=== PATIENT | male | born 1960 | race Caucasian/White ===

== ENCOUNTER → 2017-11-07 08:05 | Outpatient (REF) | payer OTHER, SELFPAY ==
[2017-11-07 12:34] LABS: Cholesterol 260 mg/dL (50-200); HDL Cholesterol 41 mg/dL (40-60); LDL CHOLESTEROL 187 mg/dL (<100); Triglyceride 159 mg/dL (30-150)
[2017-11-07 12:51] LABS: Hemoglobin A1C 5.7 % (4.5-6.2)
== END ==
LOC: NCHCN 08:05
PROVIDERS: PCP Family Medicine; Visit Provider Family Medicine
DX: R73.9 Hyperglycemia, unspecified (principal); E78.00 Pure hypercholesterolemia, unspecified; E66.9 Obesity, unspecified
CPT/HCPCS: 80061; 83721; 82728; 83036; 83540; 83550

== ENCOUNTER 2018-05-13 11:58 | Outpatient (REF) | payer OTHER, SELFPAY ==
[2018-05-13 13:22] LABS: ALT 17 U/L (12-78); AST 18 U/L (15-37); Albumin 3.6 g/dL (3.4-5.0); Alkaline Phosphatase 111 U/L (46-116); Anion Gap 8.3 mmol/L (3-11); BUN 15 mg/dL (7-18); Bilirubin, Total 0.4 mg/dL (0.2-1.0); CO2 27.7 mmol/L (21.0-32.0); CREATININE 1.08 mg/dL (0.70-1.30); Calcium 8.9 mg/dL (8.5-10.1); Chloride 105 mmol/L (98-107); Cholesterol 180 mg/dL (50-200); Glucose 90 mg/dL (70-100); HDL Cholesterol 44 mg/dL (40-60); LDL CHOLESTEROL 107 mg/dL (<100); Potassium 4.6 mmol/L (3.5-5.1); Sodium 141 mmol/L (136-145); Total Protein 6.6 g/dL (6.4-8.2); Triglyceride 154 mg/dL (30-150)
== END 2018-05-13 12:18 ==
LOC: NCHCN 11:58
PROVIDERS: PCP Family Medicine; Visit Provider Family Medicine
DX: E78.00 Pure hypercholesterolemia, unspecified (principal)
CPT/HCPCS: 80053; 80061; 83721

== ENCOUNTER 2019-05-19 07:56 | Outpatient (REF) | payer OTHER, SELFPAY ==
[2019-05-19 11:25] LABS: HCT 41.6 % (40.0-50.0); HGB 14.6 g/dL (13.5-17.5); Mean Corp. HGB Concentration 35.1 g/dL (32.0-36.0); Mean Corpuscular Hemoglobin 30.2 pg (27.0-33.0); Mean Corpuscular Volume 86.1 fL (80-95); Mean Platelet Volume 10.1 fL (8.0-11.0); Platelet Count 280 x1000/uL (130-400); RBC 4.83 m/cumm (4.50-6.00); RBC Distribution Width 12.9 % (11.8-14.1); White Blood Cell Count 7.55 k/cumm (4.4-10.8)
[2019-05-19 14:02] LABS: ALT 24 U/L (16-63); AST 19 U/L (15-37); Albumin 3.9 g/dL (3.4-5.0); Alkaline Phosphatase 118 U/L (46-116); Anion Gap 9.4 mmol/L (3-11); BUN 18 mg/dL (7-18); Bilirubin, Total 0.7 mg/dL (0.2-1.0); CO2 27.6 mmol/L (21.0-32.0); CREATININE 1.07 mg/dL (0.70-1.30); Calcium 9.1 mg/dL (8.5-10.1); Calculated LDL 117 mg/dL (<100); Chloride 104 mmol/L (98-107); Cholesterol 183 mg/dL (<200); Glucose 96 mg/dL (74-106); HDL Cholesterol 45 mg/dL (40-60); Potassium 4.9 mmol/L (3.5-5.1); Sodium 141 mmol/L (136-145); Total Protein 6.6 g/dL (6.4-8.2); Triglyceride 106 mg/dL (<150)
== END 2019-05-19 08:16 ==
LOC: NCHCN 07:56
PROVIDERS: PCP Family Medicine; Visit Provider Family Medicine
DX: Z00.00 Encounter for general adult medical examination without abnormal findings (principal); E78.00 Pure hypercholesterolemia, unspecified; R73.9 Hyperglycemia, unspecified; E66.9 Obesity, unspecified
CPT/HCPCS: 80053; 80061; 85027

== ENCOUNTER 2019-09-13 18:35 | Outpatient (REF) | payer OTHER, SELFPAY | END 2019-09-13 18:55 | LOC: NCHCN 18:35 | PROVIDERS: PCP Family Medicine | DX: N39.0 Urinary tract infection, site not specified (principal) | CPT/HCPCS: 87077; 87086; 87186 ==

== ENCOUNTER 2020-06-02 09:31 | Outpatient (REF) | payer OTHER, SELFPAY ==
[2020-06-02 13:37] LABS: HCT 42.2 % (40.0-50.0); HGB 14.2 g/dL (13.5-17.5); MCH 29.1 pg (27.0-33.0); MCHC 33.6 % (32.0-36.0); MCV 86.5 fL (80-95); Platelet Count 257 10^3/uL (130-400); RBC 4.88 10^6/uL (4.36-5.78); RDW 12.3 % (11.8-14.1); RDW-SD 38.7 fL; WBC 7.05 10^3/uL (4.4-10.8)
[2020-06-02 13:48] LABS: ALT 24 U/L (16-63); AST 17 U/L (15-37); Albumin 3.8 g/dL (3.4-5.0); Alkaline Phosphatase 112 U/L (46-116); Anion Gap 9.6 mmol/L (3-11); BUN 15 mg/dL (7-18); Bilirubin, Total 0.7 mg/dL (0.2-1.0); CO2 27.4 mmol/L (21.0-32.0); CREATININE 1.1 mg/dL (0.70-1.30); Calcium 9.3 mg/dL (8.5-10.1); Calculated LDL 107 mg/dL (<100); Chloride 104 mmol/L (98-107); Cholesterol 181 mg/dL (<200); Glucose 96 mg/dL (74-106); HDL Cholesterol 48 mg/dL (40-60); Potassium 4.8 mmol/L (3.5-5.1); Sodium 141 mmol/L (136-145); Total Protein 6.7 g/dL (6.4-8.2); Triglyceride 133 mg/dL (<150)
== END 2020-06-02 09:32 | disposition home or self-care (01) ==
LOC: NCHCN 09:31
PROVIDERS: PCP Family Medicine; Visit Provider Family Medicine
DX: R03.0 Elevated blood-pressure reading, without diagnosis of hypertension (principal); R73.03 Prediabetes; E78.00 Pure hypercholesterolemia, unspecified; Z00.00 Encounter for general adult medical examination without abnormal findings
CPT/HCPCS: 80053; 80061; 85027

== ENCOUNTER 2020-10-20 08:54 | Day surgery (SDC) | payer OTHER, SELFPAY ==
[2020-10-20 09:14] VITALS: BP 126/92; PULSE 63; RESP 16; TEMP 36; O2SAT 99
[2020-10-20] MEDS: Lactated Ringers 1,000 ML 80 ML IV (09:49)
--- NOTE | 2020-10-20 10:38 | ANES.PREOP_ITS ---
General Info Date of Service Date Performed: 10/20/20 Height: 5 ft 8 in Weight: 85 kg Body Mass Index (BMI): 28.5 Surgical Procedure: Operation Date: 10/20/20 11:05 Proposed Procedures Side Surgeon norberto Dubois MD Meds Allergies and Home Medications Allergies Allergy/AdvReac Type Severity Reaction Status Date / Time No Known Allergies Allergy Unverified 10/20/20 09:09 Home Medication Medication Instructions Recorded bupropion HCl [Wellbutrin XL] 300 mg PO DAILY tab-cap 05/21/17 cholecalciferol (vitamin D3) 1,000 unit PO DAILY 05/21/17 mirtazapine [Remeron] 7.5 mg PO HS 05/21/17 aspirin 81 mg tablet,delayed 81 mg PO DAILY 05/27/19 release atorvastatin 20 mg tablet 20 mg PO QHS 05/27/19 lamotrigine 150 mg tablet 150 mg PO DAILY 06/28/20 bimatoprost 0.01 % eye drops 1 drp OPHTHALMIC (EYE) DAILY 10/12/20 Current Visit Medications: Current Medications Generic Name Dose Route Start Last Admin Trade Name Freq PRN Reason Stop Dose Admin Ringer's Solution 1,000 mls @ 80 mls/hr 10/20/20 06:00 10/20/20 09:49 IV 11/18/20 23:59 80 mls/hr INFUSION MICHELA Administration IV Miscellaneous Supplies 1 each 10/20/20 06:00 Iv Access IV 11/18/20 23:59 DIRECTED MICHELA Sodium Chloride 0 ml 10/20/20 06:00 Normal Saline Flush 10 Ml Syr IV 11/18/20 23:59 PRN PRN Sodium Chloride 0 ml 10/20/20 06:00 Normal Saline 10 Ml Vial IJ 11/18/20 23:59 DIRECTED PRN Sterile Water 0 ml 10/20/20 06:00 Water,Injection,Sterile 10 Ml Vial IJ 11/18/20 23:59 DIRECTED PRN [facility] Medical History Medical History (Updated 10/20/20 @ 09:08 by Earline Irving) Blood glucose elevated Depression Glaucoma Hypercholesterolemia Obesity Obstructive sleep apnea (02/07/07) per pt lost 60 pounds and no longer has sleep apnea Prediabetes Pt. states this was an error on behalf of [employer], that was supposed to have been cleared out. Seasonal allergies Umbilical hernia Surgical History Surgical History Colonoscopy - MAC ([address] sandra pritchett, repeat 10 years) EGD - MAC Omi Fundoplication (07/29/05) Vasectomy (~11/05/06) Tobacco Smoking/Tobacco Use Status: Never Alcohol Alcohol Intake: never Substance Use Substance use: Never Substance use type: does not use Vital Signs and Lab Results Vital Signs Most Recent Vital Signs in EMR: Most Recent Vital Signs Temp Pulse Resp BP Pulse Ox 36 C L 63 16 126/92 H 99 10/20/20 09:14 10/20/20 09:14 10/20/20 09:14 10/20/20 09:14 10/20/20 09:14 Lab Results Blood Type / Crossmatch: No Data to Display Complete Blood Count: No Data to Display Complete Metabolic Panel: No Data to Display Liver Function Panel: No Data to Display Coagulation Panel: No Data to Display Cardiac Panel: No Data to Display Arterial Blood Gas: No Data to Display Venous Blood Gas: No Data to Display Pancreas Panel: No Data to Display Thyroid Panel: No Data to Display Infectious Disease: No Data to Display Blood Cultures: No Data to Display Toxicology Panel: No Data to Display Anesthesia Assessment and Plan Anesthesia History Personal History: No History of Anesthesia Complications Family History: No Family History of Anesthesia Complications Exercise Tolerance Exercise Tolerance: Metabolic Equivalents>4 Pertinent Negatives Pertinent Negatives: No Symptoms of GERD, No Major Cardiovascular Symptoms or Complaints and No Major Pulmonary Symptoms or Complaints Cardiac & Pulmonary Exam Cardiac Exam: Normal S1/S2 Heart Sounds and Unable to Assess Pulmonary Exam: Clear Bilateral Breath Sounds Airway Exam Known Difficult Airway: No Mallampati Class: 1 Mouth Opening: Normal (> 3cm) Thyromental Distance: Greater than 3 cm Neck Range of Motion: Full ROM Neck Circumference: Normal Teeth Condition: Normal Dentition ASA Classification ASA Score: ASA 2 Emergency Case?: No NPO Status NPO Status: NPO Clears >2 hours, Solids >8 hours Anesthesia Plan Resuscitation Status: Full Code Anesthesia Technique: General Anesthesia Airway Planned: Natural Airway Monitors Used: Standard Monitors
[2020-10-20 11:20] VITALS: BMI 28.5
--- NOTE | 2020-10-20 12:26 | W.COLOREPORT ---
Date of service: 10/20/20 Time of Service: 12:26 Colonoscopy Report Date of procedure: 10/20/20 Pre-op diagnosis general: Screening colonoscopy Post-op diagnosis procedure note: same Procedure: Colonoscopy Surgeon: Julio Dubois Anesthesia Type: MAC Estimated blood loss (mL): 0 Pathology: none sent Complications: None Disposition: same day Indications: 59yo male here for screening colonoscopy. His last colonoscopy was in 2009, and was unremarkable. He denies any family history of colon cancer. He has no new complaints. Prep: Miralax/Dulcolax Findings: Rare diverticulosis in the sigmoid colon. No hemorrhoids. Otherwise, normal colon. Procedure Description: After informed consent was obtained, the patient was taken to the procedure room and placed in a left decubitus position. Monitors were applied and a time out was done. The patient's name, date of , procedure, allergies to medications, and metal in their body were reviewed. The patient was then sedated. Once sedated and comfortable, a digital rectal exam was done. External exam was normal. Internal exam revealed good sphincter tone, and no palpable masses or gross blood. The colonoscope was then introduced and advanced to the cecum under direct visualization with minimal difficulty. The ileocecal valve and appendiceal orifice were visualized. The prep was fair. The scope was then slowly withdrawn for over 12 minutes in a circumferential manner to the rectum. In doing so, no polyps were encountered. There was mild diverticulosis noted in the sigmoid colon. The mucosa was pink and healthy. In the rectum, the scope was retroflexed, and no significant internal hemorrhoids were noted. The scope was straightened and withdrawn from the anus. The patient tolerated the procedure well, and there were no immediate complications. The patient was taken to the Day Surgery Unit recovery area in good condition. Follow up: 10 years
--- NOTE | 2020-10-20 12:29 | W.PM.DSUDISC ---
Discharge Plan Disposition Patient Disposition: HOME Condition: Good Discharge Details Reason For Visit: Screening colonoscopy Attending Provider: Julio Dubois Primary Care Provider: Belkys Wolfe Home Meds and New Rx's Prescriptions: Continued Lumigan 0.01 % drops 1 drp ophthalmic (eye) DAILY RF: 0 mirtazapine [Remeron] 15 MG tablet 7.5 mg PO HS RF: 0 cholecalciferol (vitamin D3) 1,000 UNIT capsule 1,000 unit PO DAILY RF: 0 bupropion HCl [Wellbutrin XL] 300 MG tablet extended release 24 hr 300 mg PO DAILY RF: 0 atorvastatin 20 mg tablet 20 mg PO QHS RF: 0 aspirin [Adult Low Dose Aspirin] 81 mg tablet,delayed release (DR/EC) 81 mg PO DAILY RF: 0 lamotrigine [Lamictal] 150 mg tablet 150 mg PO DAILY RF: 0 Discharge Instructions Instructions: Colonoscopy (DC) Activity:: Activity as Tolerated Diet:: As Tolerated Discharge Data Discharge Comment: Repeat colonoscopy in 10 years DS: Diagnosis Discharge Diagnosis (1) Screening for malignant neoplasm of colon: Status: Acute
[2020-10-20 12:30] VITALS: BP 108/67; PULSE 62; RESP 12; TEMP 36; O2SAT 98
--- NOTE | 2020-10-20 12:47 | W.ANESPOSTOP ---
Postoperative Evaluation Date, Time and Location Date Performed: 10/20/20 Time Performed: 12:47 Patient Location: Day Surgery Unit Vital Signs Most Recent Imported Vital Signs: Most Recent Vital Signs Temp Pulse Resp BP Pulse Ox 36 C L 62 12 108/67 98 10/20/20 12:30 10/20/20 12:30 10/20/20 12:30 10/20/20 12:30 10/20/20 12:30 Pain Score Most Recent Pain Score: Most Recent Pain Score Pain Level 0 10/20/20 12:30 Assessment Mental Status: Awake (Alert & Oriented to Patient Baseline) Airway and Respiratory Function: Patent airway with normal (patient baseline) respiratory exam Cardiovascular Function: Hemodynamically Stable Hydration Status: Adequately Hydrated Nausea & Vomiting: No Nausea or Vomiting Pain: Pt. Denies Any Pain Peripheral Nerve Block: Patient did not receive a nerve block
[2020-10-20 13:00] VITALS: BP 121/79; PULSE 59; RESP 17; TEMP 36; O2SAT 98
== END 2020-10-20 13:48 | disposition home or self-care (01) ==
PROVIDERS: PCP Family Medicine; Visit Provider Surgery
PROC: 0DJD8ZZ Inspection of Lower Intestinal Tract, Via Natural or Artificial Opening Endoscopic (ICD-10-PCS; CPT 45378; principal; 2020-10-20 11:00)
DX: Z12.11 Encounter for screening for malignant neoplasm of colon (principal); K57.30 Diverticulosis of large intestine without perforation or abscess without bleeding
CPT/HCPCS: 45378; J2001

== ENCOUNTER 2021-08-23 08:49 | Outpatient (REF) | payer OTHER, SELFPAY ==
[2021-08-23 14:54] LABS: ALT 18 U/L (16-63); AST 13 U/L (15-37); Albumin 4.2 g/dL (3.4-5.0); Alkaline Phosphatase 119 U/L (46-116); Anion Gap 6.5 mmol/L (3-11); BUN 18 mg/dL (7-18); Bilirubin, Total 0.7 mg/dL (0.2-1.0); CO2 28.5 mmol/L (21.0-32.0); CREATININE 1.2 mg/dL (0.70-1.30); Calcium 9.1 mg/dL (8.5-10.1); Calculated LDL 127 mg/dL (<100); Chloride 105 mmol/L (98-107); Cholesterol 207 mg/dL (<200); Glucose 97 mg/dL (74-106); HDL Cholesterol 52 mg/dL (40-60); Potassium 4.5 mmol/L (3.5-5.1); Sodium 140 mmol/L (136-145); Triglyceride 141 mg/dL (<150)
== END 2021-08-23 08:50 | disposition home or self-care (01) ==
LOC: NCHCN 08:49
PROVIDERS: PCP Family Medicine; Visit Provider Family Medicine
DX: R73.03 Prediabetes (principal); E78.00 Pure hypercholesterolemia, unspecified; R03.0 Elevated blood-pressure reading, without diagnosis of hypertension
CPT/HCPCS: 80053; 80061

== ENCOUNTER 2023-09-15 09:58 | Outpatient (REF) | payer OTHER, SELFPAY ==
[2023-09-15 16:42] LABS: ALT 28 U/L (16-63); AST 18 U/L (15-37); Alkaline Phosphatase 144 U/L (46-116); Anion Gap 7.3 mmol/L (3-11); BUN 14 mg/dL (7-18); Bilirubin, Total 0.6 mg/dL (0.2-1.0); CO2 28.7 mmol/L (21.0-32.0); CREATININE 1.1 mg/dL (0.70-1.30); Calcium 9.4 mg/dL (8.5-10.1); Calculated LDL 120 mg/dL (<100); Chloride 105 mmol/L (98-107); Cholesterol 195 mg/dL (<200); Estimated GFR 74.96 (mL/min/1.73m2); Glucose 100 mg/dL (74-106); HDL Cholesterol 52 mg/dL (40-60); Potassium 4.9 mmol/L (3.5-5.1); Sodium 141 mmol/L (136-145); Total Protein 6.8 g/dL (6.4-8.2); Triglyceride 117 mg/dL (<150); Vitamin D 25 Total 35.4 ng/mL (30-100)
[2023-09-15 23:16] LABS: PSA, Screening 0.3 ng/mL (<=4.5)
== END 2023-09-15 09:59 | disposition home or self-care (01) ==
LOC: NCHCN 09:58
PROVIDERS: PCP Family Medicine; Visit Provider Family Medicine
DX: Z00.00 Encounter for general adult medical examination without abnormal findings (principal); R03.0 Elevated blood-pressure reading, without diagnosis of hypertension; E78.00 Pure hypercholesterolemia, unspecified; Z12.5 Encounter for screening for malignant neoplasm of prostate
CPT/HCPCS: 80053; 80061; 82306; 84153

== ENCOUNTER 2023-09-22 16:00 | Outpatient (REF) | payer OTHER, SELFPAY ==
[2023-09-22 16:21] LABS: GGT 26 U/L (15-85)
== END 2023-09-22 16:01 | disposition home or self-care (01) ==
LOC: NCHCN 16:00
PROVIDERS: PCP Family Medicine; Visit Provider Family Medicine
DX: R74.8 Abnormal levels of other serum enzymes (principal)
CPT/HCPCS: 82977

== ENCOUNTER 2025-03-02 11:30 | Emergency (ER) | payer MEDICARE, OTHER, SELFPAY ==
[2025-03-02 11:16] VITALS: BP 148/87; PULSE 59; RESP 16; TEMP 36.2; O2SAT 97
--- NOTE | 2025-03-02 11:39 | W.ED.GENAD ---
Discharge Plan Disposition Patient Disposition: Home Condition: Stable Discharge Details Clinical Impression: Multiple fractures of ribs of right side Primary Care Provider: Belkys Wolfe ED Provider: Luke Odom Home Meds and New Rx's Prescriptions: New ketorolac 10 mg tablet 10 mg PO QID 5 Days Qty: 20 0RF Rx Instructions: maximum total duration of 5 days from all oral, intranasal, or parenteral formulations Continued Lumigan 0.01 % drops 1 drp ophthalmic (eye) DAILY mirtazapine [Remeron] 15 MG tablet 7.5 mg PO HS cholecalciferol (vitamin D3) 1,000 UNIT capsule 1,000 unit PO DAILY bupropion HCl [Wellbutrin XL] 300 MG tablet extended release 24 hr 300 mg PO DAILY atorvastatin 20 mg tablet 20 mg PO QHS aspirin [Adult Low Dose Aspirin] 81 mg tablet,delayed release (DR/EC) 81 mg PO DAILY lamotrigine [Lamictal] 150 mg tablet 150 mg PO DAILY latanoprost 0.005 % drops Patient Comments: INSTILL 1 DROP INTO BOTH EYES AT BEDTIME Discharge Instructions Instructions: Ketorolac (Systemic), Rib Fracture or Bruised Rib ED Additional Instructions: You were seen in the emergency department for the 3 fractures of your 7th, 8th and 9th ribs that are nondisplaced on the right side, it is unclear if your mechanism of injury of simply bending over and hitting your rib cage off your knee while building a treadmill is enough to cause these fractures, we are concern for pathologic fracture which could not be an indicator of cancer somewhere else in the body. I have sent you a prescription for an anti-inflammatory medication called Toradol or ketorolac, take this as directed, take it with 1000 mg of Tylenol every 8 hours, apply alternating heat and ice to the area of pain of your chest and follow-up with your primary care provider soon as possible for a bone scan. Stand Alone Forms: Portal Information Referrals: Belkys Wolfe [Primary Care Provider, Medicine] Discharge Data Discharge Date/Time-TO BE ENTERED AT DEPARTURE: 03/02/25 14:43 HPI General Date/Time Provider Initiated Documentation: 03/02/25 11:30. HPI Narrative: 64 year-old male presents to ED today by POV/ambulating with a chief complaint of R lower rib pain after bending over today- he did sort of knee his chest during this manuever with onset this morning. Quality described as tightness, pain with deep inspiration, no radiation to fever, cough, abdominal pain, nausea/vomiting, dizziness, central chest pain. Severity is described as moderate to severe. Palliating factors include nothing specific. Provoking factors include bending over. Events leading up to the incident/Associated Symptoms: Patient does endorse feeling a pop when this happened. Patient not anticoagulated. Related Data Home Medications ?Medication ?Instructions ?Recorded ?Confirmed bupropion HCl 300 mg 24 hr tablet, 300 mg PO DAILY 05/21/17 03/02/25 extended release (Wellbutrin XL) cholecalciferol (vitamin D3) 25 1,000 unit PO DAILY 05/21/17 03/02/25 mcg (1,000 unit) capsule mirtazapine 15 mg tablet (Remeron) 7.5 mg PO HS 05/21/17 03/02/25 aspirin 81 mg tablet,delayed 81 mg PO DAILY 05/27/19 03/02/25 release (Adult Low Dose Aspirin) atorvastatin 20 mg tablet 20 mg PO QHS 05/27/19 03/02/25 lamotrigine 150 mg tablet 150 mg PO DAILY 06/28/20 03/02/25 (Lamictal) bimatoprost 0.01 % eye drops 1 drp ophthalmic (eye) DAILY 10/12/20 03/02/25 (Lumigan) ketorolac 10 mg tablet 10 mg PO QID 5 days #20 tabs 03/02/25 latanoprost 0.005 % eye drops drp 03/02/25 Previous Rx's ?Medication ?Instructions ?Recorded ketorolac 10 mg tablet 10 mg PO QID 5 days #20 tabs 03/02/25 Allergies Allergy/AdvReac Type Severity Reaction Status Date / Time No Known Allergies Allergy Unverified 03/02/25 11:21 General Stated Complaint: Chest/Rib MOIRA: 4 Review of Systems All systems reviewed & are unremarkable except as noted in HPI and below Exam Narrative Exam Narrative: GENERAL APPEARANCE: Well-nourished, non-toxic, awake and alert, atraumatic, moderate acute distress. SKIN: Warm, pink, dry, intact, without rashes/lesions/ulcerations. HEAD: Normocephalic, atraumatic, normal hair distribution for gender/age. EYES: Normal conjunctiva, no exudates on lids/lashes. ENT: Nares patent, no circumoral cyanosis, no facial swelling NECK: Supple, trachea midline, painless cervical ROM. LUNGS/CHEST: Lungs CTA bilaterally, non-labored respirations, normal A/P diameter, symmetrical expansion, no chest wall deformity, right mid to lower rib tenderness in the axillary plane, no crepitus, no focally diminished or absent lung sounds, no CVA tenderness percussion bilaterally, nonlabored respirations, no hypoxia HEART (CV/PV): Regular rate and rhythm without murmur, no peripheral edema, no JVD. ABDOMEN: Soft, non-distended, no guarding. MSK: Normal ROM, no swelling/deformity to bilateral UEs or LEs, moving all extremities without weakness, no cyanosis, spine midline without tenderness, normal curvature. NEURO: Mental Status AAOx4 - alert to person, place, time, events No facial droop, no forehead involvement. Motor: No focal weakness - strength 5/5 in bilateral UEs and LEs, proximal and distal, symmetric. Sensory: sensation intact to light touch globally. Gait normal: patient ambulated without ataxia into ED room. PSYCH: euthymic, cooperative, pleasant, appropriate speech Course Vital Signs Vital signs: Vital Signs Temperature 36.2 C L 03/02/25 11:16 Pulse 59 L 03/02/25 11:16 Respiratory Rate 16 03/02/25 11:16 Blood Pressure 148/87 H 03/02/25 11:16 Pulse Oximetry 97 03/02/25 11:16 Temperature 36.2 C L 03/02/25 11:16 Temperature Source Oral 03/02/25 11:16 Pulse 59 L 03/02/25 11:16 Respiratory Rate 16 03/02/25 11:16 Blood Pressure 148/87 H 03/02/25 11:16 Pulse Oximetry 97 03/02/25 11:16 Pain Level 7 03/02/25 11:16 Medical Decision Making This dictation utilizes [id number] dictation software and may contain unedited grammatical errors. 64 year-old male presents to ED today by POV/ambulating with a chief complaint of R lower rib pain after bending over today- he did sort of knee his chest during this manuever with onset this morning. Quality described as tightness, pain with deep inspiration, no radiation to fever, cough, abdominal pain, nausea/vomiting, dizziness, central chest pain. Severity is described as moderate to severe. Palliating factors include nothing specific. Provoking factors include bending over. Events leading up to the incident/Associated Symptoms: Patient does endorse feeling a pop when this happened. Patients' medical history: Glaucoma, obesity, prediabetes, hypercholesterolemia. Family and social history: Noncontributory. Pertinent exam findings / vital signs include right mid to lower rib tenderness in the axillary plane, no crepitus, no focally diminished or absent lung sounds, no CVA tenderness percussion bilaterally, nonlabored respirations, no hypoxia. Differential / pathologies of concern include spontaneous small pneumothorax, rib fractures, pathologic fracture. Diagnostic studies of: - CT chest without contrast-shows no pneumothorax, shows cortical deformities of the anterior 7th, 8th and 9th ribs which may represent nondisplaced fractures. Interventions of: - Discussed with surgical service Dr. Cooper -patient is not in severe pain and is not having any respiratory distress does not likely need admission for these fractures, I did provide him with incentive spirometer and discussed the possibility of pathologic fracture with him and the need for urgent follow-up imaging for primary care. -1 dose Ativan and Toradol, Tylenol ED Course/Assessment/Plan: 64-year-old male presents with right-sided rib pain after bending down and needing his chest while working on home appliance today, he felt a pop when this happened but is in nonsevere pain at this point and his pain was improved with Ativan and Toradol/Tylenol. I discussed the possibility of pathologic fracture and the need for imaging workup by primary care but that his rib fractures will likely heal over the next 6 weeks or so to use his incentive spirometer to prevent pneumonia with strict return criteria for any developing cough or fever, worsening despite treatment or any other emergent concerns. Findings not consistent with pneumonia, spontaneous pneumothorax, displaced rib fractures. Disposition of multiple fractures of ribs of right side. Patient verbalized understanding of the plan and return to ED criteria and engaged in shared decision making. Medical Records Medical records reviewed: Yes I reviewed the patient's medical records. Imaging Data Radiologic Study: Attestation: I personally reviewed and interpreted this imaging study as follows: Imaging: CT Scan Radiologist's impression: EXAM: CT CHEST WO CLINICAL HISTORY: R lower rib pain fx vs small pneumo. TECHNIQUE: Imaging protocol: Axial computed tomography images were obtained and coronal and sagittal reformatted images were created and reviewed. Lung Computer Aided Detection (CAD) was utilized. COMPARISON: No exams were available for comparison FINDINGS: Tracheobronchial tree: Patent where visualized. No bronchiectasis is present. Pulmonary parenchyma: There are linear opacities seen in the lung bases and in the left lingula suspicious for atelectasis. The lungs are otherwise clear. There are no suspicious pulmonary nodules. Mediastinum and Kecia: No dominant adenopathy or fluid collection. The esophagus is unremarkable.Postsurgical changes are seen at the gastroesophageal junction. Thyroid gland: Unremarkable. Pleura: No effusion or pneumothorax. Heart: The heart is at the upper limits of normal in size. Coronary artery calcifications are present. No pericardial effusion. Aorta: Thoracic aorta non-dilated. Atherosclerotic calcification is present. Upper abdomen: Unremarkable. Lymph nodes: Within normal limits. Soft tissues: Unremarkable. Bones:Within normal limits for the patient's age. There is mild cortical deformity involving the anterior aspects of the right 7th, 8th and 9th ribs which may represent nondisplaced fractures. IMPRESSION: 1. There is no evidence of a pneumothorax. 2. Cortical deformities involving the anterior right 7th, 8th and 9th ribs which may represent nondisplaced fractures. 3. Atelectatic changes in the lungs. PFSH All Active Problems (Updated 03/02/25 @ 14:17 by JOE Marroquin) Multiple fractures of ribs of right side (Acute) Screening for malignant neoplasm of colon (Acute) Medical History (Updated 03/02/25 @ 14:17 by JOE Marroquin) Glaucoma Seasonal allergies Obesity Prediabetes Pt. states this was an error on behalf of [place], that was supposed to have been cleared out. Blood glucose elevated Hypercholesterolemia Umbilical hernia Depression Obstructive sleep apnea (02/07/07) per pt lost 60 pounds and no longer has sleep apnea Surgical History (Updated 11/20/20 @ 15:38 by Chloé Hennessy, [facility]) History of colonoscopy Vasectomy (~11/05/06) Omi Fundoplication (07/29/05) EGD - MAC (~09/2020) Colonoscopy - MAC ([address] sandra pritchett, repeat 10 years) Family History Mother Essential hypertension Hyperlipidemia Father Hyperlipidemia Social History Smoking/Tobacco Use Status: Never Smoking risk assessment performed?: Yes Alcohol Intake: never Drug use: Never Substance use type: does not use Do you feel safe at home: Yes Do you feel safe in your relationship?: Yes
--- NOTE | 2025-03-02 11:45 | DI.CT_ITS ---
Exam(s) CT CHEST WO EXAM: CT CHEST WO CLINICAL HISTORY: R lower rib pain fx vs small pneumo. TECHNIQUE: Imaging protocol: Axial computed tomography images were obtained and coronal and sagittal reformatted images were created and reviewed. Lung Computer Aided Detection (CAD) was utilized. COMPARISON: No exams were available for comparison FINDINGS: Tracheobronchial tree: Patent where visualized. No bronchiectasis is present. Pulmonary parenchyma: There are linear opacities seen in the lung bases and in the left lingula suspicious for atelectasis. The lungs are otherwise clear. There are no suspicious pulmonary nodules. Mediastinum and Kecia: No dominant adenopathy or fluid collection. The esophagus is unremarkable.Postsurgical changes are seen at the gastroesophageal junction. Thyroid gland: Unremarkable. Pleura: No effusion or pneumothorax. Heart: The heart is at the upper limits of normal in size. Coronary artery calcifications are present. No pericardial effusion. Aorta: Thoracic aorta non-dilated. Atherosclerotic calcification is present. Upper abdomen: Unremarkable. Lymph nodes: Within normal limits. Soft tissues: Unremarkable. Bones:Within normal limits for the patient's age. There is mild cortical deformity involving the anterior aspects of the right 7th, 8th and 9th ribs which may represent nondisplaced fractures. IMPRESSION: 1. There is no evidence of a pneumothorax. 2. Cortical deformities involving the anterior right 7th, 8th and 9th ribs which may represent nondisplaced fractures. 3. Atelectatic changes in the lungs. RADIATION DOSE DELIVERED: 256.32mGy.cm Total DLP 256.32mGy.cm Total DLP DATA REPOSITORY: All CT scans at this facility are submitted to the National Radiology Data Registry (NRDR) Dose Index Registry (DIR) with the [employer] ([employer]). RADIATION OPTIMIZATION: All CT scans at this facility use at least one of these dose optimization techniques: automated exposure control; mA and/or kV adjustment per patient size (includes targeted exams where dose is matched to clinical indication); or iterative reconstruction.
[2025-03-02] MEDS: Acetaminophen 500 MG TAB 1000 MG PO (12:02)
[2025-03-02] MEDS: LORazepam 0.5 MG TAB PO (12:02)
[2025-03-02] MEDS: Ketorolac 15 MG/ML VIAL IVP (12:03)
[2025-03-02 13:28] VITALS: BP 150/76; PULSE 60
[2025-03-02 13:51] LABS: Abs Immature Grans 0.03 10^3/uL (0.0-0.06); HCT 42.7 % (40.0-50.0); HGB 14.2 g/dL (13.5-17.5); Immature Grans % 0.3 %; MCH 28.7 pg (27.0-33.0); MCHC 33.3 % (32.0-36.0); MCV 86 fL (80-95); MPV 9.8 fL (8.0-11.0); Platelet Count 264 10^3/uL (130-400); RBC 4.95 10^6/uL (4.36-5.78); RDW 12.8 % (11.8-14.1); RDW-SD 40.2 fL; WBC 9.40 10^3/uL (4.4-10.8)
[2025-03-02 14:18] LABS: LDH 182 U/L (120-246)
[2025-03-02 14:20] LABS: ALT 19 U/L (10-49); AST 21 U/L (<34); Albumin 4.6 g/dL (3.2-5.0); Alkaline Phosphatase 150 U/L (46-116); Anion Gap 8.1 mmol/L (3-11); BUN 20 mg/dL (9-23); Bilirubin, Total 0.70 mg/dL (0.2-1.2); CO2 27.9 mmol/L (20.0-31.0); Calcium 9.9 mg/dL (8.3-10.6); Chloride 104 mmol/L (98-107); Glucose 101 mg/dL (74-106); Potassium 4.5 mmol/L (3.5-5.1); Sodium 140 mmol/L (136-145); Total Protein 7.7 g/dL (5.7-8.2)
[2025-03-02 14:21] LABS: TSH (W/Ref FT4) 1.32 uIU/mL (0.55-4.78)
[2025-03-02 14:42] VITALS: BP 142/60; PULSE 62; RESP 18; O2SAT 98
== END 2025-03-02 14:43 | disposition home or self-care (01) ==
PROVIDERS: Emergency Provider Physician Assistant; PCP Family Medicine
DX: S22.41XA Multiple fractures of ribs, right side, initial encounter for closed fracture (principal); X50.9XXA Other and unspecified overexertion or strenuous movements or postures, initial encounter; Y93.89 Activity, other specified; Z79.82 Long term (current) use of aspirin
CPT/HCPCS: 71250; 80053; 96374; 99284; 83615; 84443; 85025; J1885